=== PATIENT | male | born 2000 | race African-American/Black ===

== ENCOUNTER 2019-03-19 21:12 | Emergency (ER) | payer BC, MEDICAID | END 2019-03-19 22:03 | disposition home or self-care (01) | LOC: ERS 21:12 | DX: R22.2 Localized swelling, mass and lump, trunk (principal) | CPT/HCPCS: 99281 ==

== ENCOUNTER 2019-10-14 11:56 | Emergency (ER) | payer BC, SELFPAY ==
--- NOTE | 2019-10-14 12:34 | RAD ---
EXAM: Chest PA and lateral: HISTORY: Cough and fever body aches COMPARISON: 07/22/2009 FINDINGS: Heart size:Within normal limits. Lungs:Clear of acute process. No confluent pneumonia, overt edema, pleural effusion, or other acute process. IMPRESSION: No significant acute intrathoracic disease.
== END 2019-10-14 16:44 | disposition home or self-care (01) ==
LOC: ERS 11:56
DX: J02.9 Acute pharyngitis, unspecified (principal); R07.89 Other chest pain; F17.210 Nicotine dependence, cigarettes, uncomplicated
CPT/HCPCS: 71046; 87081; 87430